=== PATIENT | female | born 1980 | race Caucasian/White ===

== ENCOUNTER 2017-10-21 15:05 | Emergency (ER) | payer SELFPAY ==
[~2017-10-21] VITALS: Ht 162.6 cm; Wt 85.0 kg
[2017-10-21 22:02] VITALS: BP 134/80
== END 2017-10-21 22:05 | disposition home or self-care (01) ==
LOC: ER 22:05
DX: S82.831A Other fracture of upper and lower end of right fibula, initial encounter for closed fracture (principal); W01.0XXA Fall on same level from slipping, tripping and stumbling without subsequent striking against object, initial encounter; Y93.89 Activity, other specified; Y92.018 Other place in single-family (private) house as the place of occurrence of the external cause
CPT/HCPCS: 29515; 73610; 81025; 99284

== ENCOUNTER 2018-12-10 17:36 | Observation (INO) | payer MEDICAID ==
[~2018-12-10] VITALS: Ht 162.6 cm; Wt 110.7 kg
[2018-12-10] MEDS ORDERED: GLYB1.253 MT (19:04)
[2018-12-10] MEDS ORDERED: PRO1 MT (19:04)
[2018-12-10] MEDS ORDERED: ASPI-1159 MT (19:04)
[2018-12-10 19:26] LABS: BASOPHILS % 0.4 % (0.0-2.0); EOSINOPHILS % 0.4 % (0.0-5.0); LYMPHOCYTES % 17.9 % (20.0-50.0); MEAN CORPUSCULAR HEMOGLOBIN 18.9 pg (28.0-32.0); MEAN CORPUSCULAR VOLUME 63.3 fL (81.0-99.0); MEAN PLATELET VOLUME 8.6 fl (7.4-10.4); MONOCYTES % 4.9 % (2.0-8.0); NEUTROPHILS % 76.4 % (40.0-76.0); PLATELET 209 x1000/uL (130-400); RED BLOOD CELL COUNT 4.26 mill/uL (4.2-5.4)
[2018-12-10 19:29] LABS: CHLORIDE 110 mEq/L (98-107)
[2018-12-10] MEDS ORDERED: LABETALOL HCL 100MG TABLET PO SCH (19:30)
[2018-12-10 19:31] LABS: D-DIMER 1.26 mg/L FEU (<0.50); INR 0.9; PARTIAL THROMBOPLASTIN TIME 26.2 sec (23.4-31.0); PROTHROMBIN TIME 9.3 sec (9.6-11.0)
[2018-12-10 19:45] LABS: PLATELET ESTIMATE NORMAL
[2018-12-10 20:07] LABS: CLARITY URINE CLEAR (CLEAR); COLOR URINE YELLOW (YELLOW); KETONES URINE NEGATIVE (NEGATIVE); LEUKOCYTE ESTERASE URINE NEGATIVE (NEGATIVE); NITRITE URINE NEGATIVE (NEGATIVE); OCCULT BLOOD URINE NEGATIVE (NEGATIVE); PH URINE 5.5 (4.5-8.0); PROTEIN URINE NEGATIVE (NEGATIVE); UROBILINOGEN URINE 0.2 E.U./dL (0.2-1.0)
[2018-12-10] MEDS ORDERED: INSULIN NPH (HUMULIN-N) 100 UNITS/ML 3ML VIAL SUBCUT SCH (22:00)
[2018-12-10] MEDS: ACETAMINOPHEN 325MG TABLET PO NR ×2 (22:50→22:53)
[2018-12-11] MEDS ORDERED: INSULIN REGULAR (HUMULIN R) 300UNITS/3ML SUBCUT SCH ×3 (07:00→17:00)
[2018-12-11] MEDS ORDERED: INSULIN NPH (HUMULIN-N) 100 UNITS/ML 3ML VIAL SUBCUT SCH (07:00)
== END 2018-12-11 02:21 | disposition home or self-care (01) ==
LOC: 8 EST LDRP 17:36
PROVIDERS: ADMIT Obstetrics & Gynecology; ATTEND Obstetrics & Gynecology
DX: O24.419 Gestational diabetes mellitus in pregnancy, unspecified control (principal); O16.3 Unspecified maternal hypertension, third trimester; O40.3XX0 Polyhydramnios, third trimester, not applicable or unspecified; Z3A.37 37 weeks gestation of pregnancy
CPT/HCPCS: 36415; 80053; 81003; 82575; 82962; 83036; 84156; 84550; 85025; 85379; 85384; 85610; 85730; 96372; 99281; G0378; J1815

== ENCOUNTER 2018-12-24 07:52 | Inpatient (IN) | payer MEDICAID ==
[~2018-12-24] VITALS: Ht 157.5 cm; Wt 100.2 kg
[~2018-12-24 07:52] MED LIST: ASPI-1159 MT; GLYB1.253 MT; PRO1 MT
[2018-12-24] MEDS ORDERED: MORPHINE SULFATE/PF 1MG/ML 10ML AMP ONE (08:10)
[2018-12-24] MEDS ORDERED: FENTANYL CITRATE/PF 50MCG/ML 2ML VIAL ONE (08:10)
[2018-12-24] MEDS ORDERED: ONDANSETRON HCL 4MG/2ML INJ ONE (08:11)
[2018-12-24] MEDS ORDERED: OXYTOCIN 10 UNITS/ML 1ML ONE ×2 (08:11→11:23)
[2018-12-24] MEDS ORDERED: GLYCOPYRROLATE 0.2 MG/ML 2ML VIAL ONE (08:11)
[2018-12-24] MEDS ORDERED: EPHEDRINE SULFATE 50MG/ML VIAL ONE (08:11)
[2018-12-24] MEDS ORDERED: BUPIVACAINE HCL/DEXTROSE/PF 0.75% 2ML AMP INJ ONE (08:11)
[2018-12-24] MEDS ORDERED: PHENYLEPHRINE HCL 10 MG/ML 1ML (IV VIAL) IV ONE (08:11)
[2018-12-24] MEDS: BLOOD SUGAR DIAGNOSTIC STRIP TEST SCH ×2 (08:15→13:02)
[2018-12-24 09:07] LABS: BASOPHILS % 0.6 % (0.0-2.0); EOSINOPHILS % 0.7 % (0.0-5.0); HEMATOCRIT. 26.4 % (36.0-48.0); HEMOGLOBIN. 7.9 g/dL (12.0-16.0); LYMPHOCYTES % 19.2 % (20.0-50.0); MEAN CORPUSCULAR HEMOGLOBIN 18.7 pg (28.0-32.0); MEAN CORPUSCULAR VOLUME 62.6 fL (81.0-99.0); MEAN PLATELET VOLUME 8.6 fl (7.4-10.4); MONOCYTES % 6.1 % (2.0-8.0); NEUTROPHILS % 73.4 % (40.0-76.0); PLATELET 234 x1000/uL (130-400); RED BLOOD CELL COUNT 4.22 mill/uL (4.2-5.4); RED CELL DISTRIBUTION WIDTH 22.8 % (11.6-14.6)
[2018-12-24 09:13] LABS: CHLORIDE 112 mEq/L (98-107)
[2018-12-24] MEDS ORDERED: MISOPROSTOL 200MCG TABLET PO ONE (09:15)
[2018-12-24] MEDS ORDERED: METHYLERGONOVINE MALEATE 0.2 MG/ML IM ONE (09:15)
[2018-12-24] MEDS ORDERED: CARBOPROST TROMETHAMINE 250 MCG/ML AMPUL IM ONE ×2 (09:15→10:45)
[2018-12-24 09:23] LABS: D-DIMER 1.31 mg/L FEU (<0.50); FIBRINOGEN 502 mg/dL (200-400); INR 0.9; PARTIAL THROMBOPLASTIN TIME 27.2 sec (23.4-31.0)
[2018-12-24] MEDS: LACTATED RINGERS 1,000 ML IV SCH (09:26)
[2018-12-24] MEDS ORDERED: CEFAZOLIN SODIUM 1000MG/VIAL ONE (09:34)
[2018-12-24 09:48] LABS: PROTHROMBIN TIME < 9.0 sec (9.6-11.0)
[2018-12-24 09:59] LABS: PLATELET ESTIMATE NORMAL
[2018-12-24] MEDS ORDERED: METOCLOPRAMIDE HCL 10MG/2ML VIAL ONE (11:02)
[2018-12-24] MEDS ORDERED: DIPHENHYDRAMINE 50MG/ML VIAL ONE (11:03)
[2018-12-24 11:05] LABS: HEPATITIS B SURFACE ANTIGEN NEGATIVE
[2018-12-24] MEDS ORDERED: NALOXONE HCL 0.4 MG/ML 1ML VIAL IV PRN (11:15)
[2018-12-24] MEDS ORDERED: DIPHENHYDRAMINE 50MG/ML VIAL IV PRN (11:15)
[2018-12-24] MEDS ORDERED: BUTORPHANOL TARTRATE 2 MG/ML VIAL IV PRN (11:15)
[2018-12-24] MEDS ORDERED: ONDANSETRON HCL 4MG/2ML INJ IV PRN (11:15)
[2018-12-24] MEDS ORDERED: DEXTROSE 50% WATER 50ML SYRINGE IV PRN (12:00)
[2018-12-24] MEDS: BUTORPHANOL TARTRATE 2 MG/ML VIAL IM PRN (13:18)
[2018-12-24 13:21] LABS: CLARITY URINE CLEAR (CLEAR); COLOR URINE YELLOW (YELLOW); KETONES URINE NEGATIVE (NEGATIVE); LEUKOCYTE ESTERASE URINE NEGATIVE (NEGATIVE); NITRITE URINE NEGATIVE (NEGATIVE); OCCULT BLOOD URINE NEGATIVE (NEGATIVE); PROTEIN URINE 1+ (NEGATIVE); SPECIFIC GRAVITY URINE 1.012 (1.005-1.030)
[2018-12-24 13:40] LABS: *AMPHETAMINES SCREEN URINE NEGATIVE (NEGATIVE); *BARBITURATES SCREEN URINE NEGATIVE (NEGATIVE); *BENZODIAZEPINES SCREEN URINE NEGATIVE (NEGATIVE); *COCAINE SCREEN URINE NEGATIVE (NEGATIVE); METHADONE URINE SCREEN NEGATIVE (NEGATIVE); OPIATES URINE SCREEN NEGATIVE (NEGATIVE)
[2018-12-24 13:41] LABS: CANNABINOID URINE SCREEN NEGATIVE (NEGATIVE); PHENCYCLIDINE URINE SCREEN NEGATIVE (NEGATIVE)
[2018-12-24 13:55] VITALS: BP 145/85
[2018-12-24] MEDS: LACTATED RINGERS IV SCH (14:22)
[2018-12-24] MEDS: OXYTOCIN IV SCH (14:22)
[2018-12-24 14:25] VITALS: BP 145/85
[2018-12-24 14:52] VITALS: BP 142/85
[2018-12-24 17:30] VITALS: BP 127/71
[2018-12-24 20:00] VITALS: BP 129/88
[2018-12-25] VITALS (14 sets, daily range): BP systolic 122–144; BP diastolic 60–88
[2018-12-25] MEDS: LACTATED RINGERS 1,000 ML IV SCH ×2 (00:55→09:15)
[2018-12-25] MEDS: BUTORPHANOL TARTRATE 2 MG/ML VIAL IM PRN (03:35)
[2018-12-25] MEDS ORDERED: IBUPROFEN 800MG TABLET PO PRN (08:45)
[2018-12-25 08:59] LABS: BASOPHILS % 0.3 % (0.0-2.0); LYMPHOCYTES % 7.7 % (20.0-50.0); MEAN CORPUSCULAR HEMOGLOBIN 18.6 pg (28.0-32.0); MEAN CORPUSCULAR VOLUME 63.1 fL (81.0-99.0); MEAN PLATELET VOLUME 8.1 fl (7.4-10.4); MONOCYTES % 4.6 % (2.0-8.0); NEUTROPHILS % 87.4 % (40.0-76.0); PLATELET 232 x1000/uL (130-400); RED BLOOD CELL COUNT 2.55 mill/uL (4.2-5.4); RED CELL DISTRIBUTION WIDTH 22.6 % (11.6-14.6)
[2018-12-25 09:05] LABS: HEMOGLOBIN. 4.7 g/dL (12.0-16.0)
[2018-12-25 09:06] LABS: HEMATOCRIT. 16.1 % (36.0-48.0)
[2018-12-25] MEDS: IBUPROFEN 800MG TABLET PO PRN ×2 (10:17→20:40)
[2018-12-25] MEDS: LACTATED RINGERS IV SCH (10:18)
[2018-12-25] MEDS: OXYTOCIN IV SCH (10:18)
[2018-12-25 10:22] LABS: BASOPHILS % 0.3 % (0.0-2.0); LYMPHOCYTES % 7.9 % (20.0-50.0); MEAN CORPUSCULAR HEMOGLOBIN 18.5 pg (28.0-32.0); MEAN CORPUSCULAR VOLUME 62.8 fL (81.0-99.0); MEAN PLATELET VOLUME 8.4 fl (7.4-10.4); NEUTROPHILS % 86.8 % (40.0-76.0); PLATELET 217 x1000/uL (130-400); RED BLOOD CELL COUNT 2.52 mill/uL (4.2-5.4)
[2018-12-25 10:26] LABS: HEMATOCRIT. 15.8 % (36.0-48.0); HEMOGLOBIN. 4.7 g/dL (12.0-16.0)
[2018-12-25] MEDS ORDERED: ACETAMINOPHEN 325MG TABLET PO NR (13:30)
[2018-12-25] MEDS ORDERED: DIPHENHYDRAMINE 25MG CAPSULE PO NR (13:30)
[2018-12-25 20:41] LABS: BASOPHILS % 0.2 % (0.0-2.0); EOSINOPHILS % 0.3 % (0.0-5.0); LYMPHOCYTES % 10.5 % (20.0-50.0); MEAN CORPUSCULAR HEMOGLOBIN 21.6 pg (28.0-32.0); MEAN CORPUSCULAR VOLUME 70.2 fL (81.0-99.0); MEAN PLATELET VOLUME 8.3 fl (7.4-10.4); MONOCYTES % 5.2 % (2.0-8.0); NEUTROPHILS % 83.8 % (40.0-76.0); PLATELET 187 x1000/uL (130-400); RED BLOOD CELL COUNT 2.95 mill/uL (4.2-5.4); RED CELL DISTRIBUTION WIDTH 28.3 % (11.6-14.6)
[2018-12-25 20:43] LABS: HEMOGLOBIN. 6.4 g/dL (12.0-16.0)
[2018-12-25] MEDS: BLOOD SUGAR DIAGNOSTIC STRIP TEST SCH (20:43)
[2018-12-25 20:44] LABS: HEMATOCRIT. 20.7 % (36.0-48.0)
[2018-12-25] MEDS: INSULIN LISPRO (LOW DOSE) 100 UNITS/ML SUBCUT SCH (21:22)
[2018-12-26] VITALS (24 sets, daily range): BP systolic 105–161; BP diastolic 41–77
[2018-12-26] MEDS: BLOOD SUGAR DIAGNOSTIC STRIP TEST SCH ×7 (00:40→21:57)
[2018-12-26] MEDS ORDERED: LABETALOL HCL 200MG TABLET PO SCH ×2 (06:15→11:00)
[2018-12-26 07:51] LABS: HEMATOCRIT. 24.4 % (36.0-48.0); HEMOGLOBIN. 7.6 g/dL (12.0-16.0); MEAN CORPUSCULAR HEMOGLOBIN 22.4 pg (28.0-32.0); MEAN CORPUSCULAR VOLUME 71.5 fL (81.0-99.0); MEAN PLATELET VOLUME 8.3 fl (7.4-10.4); PLATELET 158 x1000/uL (130-400); RED BLOOD CELL COUNT 3.41 mill/uL (4.2-5.4)
[2018-12-26] MEDS: INSULIN LISPRO (LOW DOSE) 100 UNITS/ML SUBCUT SCH ×3 (08:00→13:03)
[2018-12-26 08:10] LABS: D-DIMER 3.54 mg/L FEU (<0.50); INR 0.9; PARTIAL THROMBOPLASTIN TIME 27.5 sec (23.4-31.0); PROTHROMBIN TIME 9.1 sec (9.6-11.0)
[2018-12-26 08:20] LABS: CHLORIDE 114 mEq/L (98-107)
[2018-12-26] MEDS: DOCUSATE SODIUM 100MG CAPSULE PO SCH (08:46)
[2018-12-26] MEDS: IBUPROFEN 800MG TABLET PO PRN ×2 (08:46→16:53)
[2018-12-26] MEDS: LACTATED RINGERS 1,000 ML IV SCH (10:28)
[2018-12-26 11:03] LABS: PLATELET ESTIMATE NORMAL
[2018-12-26] MEDS: NIFEDIPINE 10MG CAPSULE PO SCH ×2 (11:58→22:37)
[2018-12-26 15:59] LABS: CLARITY URINE CLEAR (CLEAR); COLOR URINE YELLOW (YELLOW); KETONES URINE NEGATIVE (NEGATIVE); LEUKOCYTE ESTERASE URINE TRACE (NEGATIVE); NITRITE URINE NEGATIVE (NEGATIVE); OCCULT BLOOD URINE 2+ (NEGATIVE); PH URINE 6.5 (4.5-8.0); PROTEIN URINE NEGATIVE (NEGATIVE); SPECIFIC GRAVITY URINE 1.012 (1.005-1.030)
[2018-12-26 19:01] LABS: HEMATOCRIT 28.3 % (36.0-48.0); HEMOGLOBIN 9.3 g/dL (12.0-16.0)
[2018-12-27 02:00] VITALS: BP 139/65
[2018-12-27 05:39] VITALS: BP 142/69
[2018-12-27 08:00] VITALS: BP 147/73
[2018-12-27] MEDS: DOCUSATE SODIUM 100MG CAPSULE PO SCH (09:03)
[2018-12-27] MEDS: NIFEDIPINE 10MG CAPSULE PO SCH (09:03)
[2018-12-27] MEDS: IBUPROFEN 800MG TABLET PO PRN (09:04)
[2018-12-27 12:00] VITALS: BP 127/74
== END 2018-12-27 13:25 | disposition home or self-care (01) | DRG 540 ==
LOC: OBSVTOIN 07:52 → 8 EST LDRP 07:52 → 8EST 14:05
PROVIDERS: ADMIT Obstetrics & Gynecology; ATTEND Obstetrics & Gynecology
PROC: 10D00Z1 Extraction of Products of Conception, Low, Open Approach (ICD-10-PCS; principal; 2018-12-24)
PROC: 0UB70ZZ Excision of Bilateral Fallopian Tubes, Open Approach (ICD-10-PCS; 2018-12-24)
PROC: 30233N1 Transfusion of Nonautologous Red Blood Cells into Peripheral Vein, Percutaneous Approach (ICD-10-PCS; 2018-12-25)
DX: O13.4 Gestational [pregnancy-induced] hypertension without significant proteinuria, complicating childbirth (principal); E66.01 Morbid (severe) obesity due to excess calories; O40.3XX0 Polyhydramnios, third trimester, not applicable or unspecified; O34.211 Maternal care for low transverse scar from previous cesarean delivery; Z37.0 Single live birth; O36.63X0 Maternal care for excessive fetal growth, third trimester, not applicable or unspecified; O24.429 Gestational diabetes mellitus in childbirth, unspecified control; O99.214 Obesity complicating childbirth; D64.9 Anemia, unspecified; Z3A.39 39 weeks gestation of pregnancy; Z30.2 Encounter for sterilization; Z82.49 Family history of ischemic heart disease and other diseases of the circulatory system; Z83.3 Family history of diabetes mellitus; O99.02 Anemia complicating childbirth
CPT/HCPCS: 36415; 80305; 82947; 82962; 84550; 85014; 85018; 85379; 85384; 86592; 86703; 86762; 86850; 86900; 86920; 87340; 88302; 88307; G0378; J0595; J0690; J1200; J1815; J2274; J2370; J2405; J2765; J3010; J3490; J7040; J7120; P9016; P9021; Q0163; A4315

== ENCOUNTER 2024-03-23 10:40 | Emergency (ER) | payer MEDICAID, OTHER ==
[~2024-03-23] VITALS: Ht 167.6 cm; Wt 81.0 kg
[~2024-03-23 10:40] MED LIST changes: -ASPI-1159 MT
[2024-03-23 10:55] VITALS: BP_DIAS 88; O2SAT 100
[2024-03-23] MEDS: VANCOMYCIN 1G PREMIX 200 ML IV NR (11:45)
[2024-03-23] MEDS: CEFTRIAXONE 1GM/50ML 50 ML IV NR (11:45)
[2024-03-23 12:02] LABS: BASOPHILS % 0.2 % (0.0-2.0); EOSINOPHILS % 1.2 % (0.0-5.0); HEMATOCRIT. 35.3 % (36.0-48.0); HEMOGLOBIN. 10.7 g/dL (12.0-16.0); LYMPHOCYTES % 23.2 % (20.0-50.0); MEAN CORPUSCULAR HEMOGLOBIN 19.5 pg (28.0-32.0); MEAN CORPUSCULAR HGB CONC 30.3 g/dL (31.0-37.0); MEAN CORPUSCULAR VOLUME 64.4 fL (81.0-99.0); MEAN PLATELET VOLUME 8.5 fl (7.4-10.4); MONOCYTES % 8.6 % (2.0-8.0); NEUTROPHILS % 66.8 % (40.0-76.0); PLATELET 250 x1000/uL (130-400); RED BLOOD CELL COUNT 5.48 mill/uL (4.2-5.4); RED CELL DISTRIBUTION WIDTH 23.1 % (11.6-14.6); WHITE BLOOD COUNT 6.4 x1000/uL (4.5-11.0)
[2024-03-23 12:04] LABS: CHLORIDE 104 mEq/L (98-107); POTASSIUM 3.5 mEq/L (3.5-5.1); SODIUM 136 mEq/L (136-145)
[2024-03-23 12:05] LABS: CARBON DIOXIDE 25 mEq/L (21-32); INR 0.9; PROTHROMBIN TIME 10.2 sec (9.6-11.0)
[2024-03-23 12:10] LABS: CREATININE 0.5 mg/dL (0.6-1.0); GLUCOSE 193 mg/dL (70-105); UREA NITROGEN BLOOD 7 mg/dL (9-23)
[2024-03-23 12:12] LABS: ALANINE AMINOTRANSFERASE 37 IU/L (10-49); ALBUMIN 4.4 g/dL (3.2-4.8); ASPARTATE AMINOTRANSFERASE 38 IU/L (<34); BILIRUBIN TOTAL 0.3 mg/dL (0.1-1.0); PROTEIN TOTAL 7.5 g/dL (6.0-8.3)
[2024-03-23 12:13] LABS: ADD RBC MORPHOLOGY YES; DIFFERENTIAL COMMENT 1
[2024-03-23 12:14] LABS: HCG SCREEN NEGATIVE
[2024-03-23 12:15] LABS: BILIRUBIN DIRECT < 0.1 mg/dL (<=3.0); TROPONIN I HIGH SENSITIVITY < 4 ng/L (3.0-34)
[2024-03-23 13:10] LABS: ANISOCYTOSIS 2+; PLATELET ESTIMATE NORMAL
[2024-03-23 13:11] LABS: MICROCYTOSIS 2+
[2024-03-23] MEDS: SODIUM CHLORIDE 0.9% 1000ML BAG (SEPSIS BOLUS) IV NR (13:55)
[2024-03-23] MEDS: FAMOTIDINE 20MG/2ML VIAL IV NR (16:17)
[2024-03-23 17:33] LABS: CLARITY URINE CLEAR (CLEAR); COLOR URINE YELLOW (YELLOW); GLUCOSE URINE NEGATIVE (NEGATIVE); KETONES URINE NEGATIVE (NEGATIVE); LEUKOCYTE ESTERASE URINE NEGATIVE (NEGATIVE); NITRITE URINE NEGATIVE (NEGATIVE); OCCULT BLOOD URINE NEGATIVE (NEGATIVE); PROTEIN URINE NEGATIVE (NEGATIVE); SPECIFIC GRAVITY URINE 1.017 (1.005-1.030); UROBILINOGEN URINE 0.2 E.U./dL (0.2-1.0)
[2024-03-23 18:39] VITALS: BP_SYST 132; PULSE 88; RESP 20; TEMP 97.7
== END 2024-03-23 18:55 | disposition home or self-care (01) ==
LOC: ER 11:04
DX: A08.4 Viral intestinal infection, unspecified (principal); R11.2 Nausea with vomiting, unspecified
CPT/HCPCS: 80076; 80048; 81003; 84703; 83605; 83690; 83930; 85025; 85610; 87040; 87086; 84484; 36415; 84145; 71045; 93005; 96368; 96365; 96366; 96375; 99291; J0696; J3490; J3370; Z7610 ×2

== ENCOUNTER 2024-08-13 12:28 | Emergency (ER) | payer OTHER ==
[~2024-08-13] VITALS: Ht 165.1 cm; Wt 81.6 kg
[~2024-08-13 12:28] MED LIST changes: +NIFE10CA59 MT; -PRO1 MT
[2024-08-13 12:47] VITALS: BP 148/85; RESP 16; O2SAT 100
[2024-08-13 12:50] VITALS: PULSE 86; O2SAT 99
[2024-08-13] MEDS ORDERED: ACET-2708 MT (13:29)
[2024-08-13 14:20] VITALS: TEMP 97.9
[2024-08-13] MEDS: ACETAMINOPHEN 325MG TABLET PO ONE (14:20)
== END 2024-08-13 13:12 | disposition home or self-care (01) ==
LOC: ER 12:28
DX: F41.9 Anxiety disorder, unspecified (principal); E11.9 Type 2 diabetes mellitus without complications; Z98.890 Other specified postprocedural states
CPT/HCPCS: 99282

== ENCOUNTER 2025-03-27 12:58 | Emergency (ER) | payer OTHER ==
[~2025-03-27] VITALS: Ht 165.1 cm; Wt 86.0 kg
[~2025-03-27 12:58] MED LIST changes: +ACET-2708 MT
[2025-03-27 13:11] VITALS: O2SAT 97
[2025-03-27] MEDS: KETOROLAC 30MG/ML VIAL IM ONE (15:06)
[2025-03-27 15:54] LABS: CLARITY URINE CLEAR (CLEAR); GLUCOSE URINE 3+ (NEGATIVE); KETONES URINE NEGATIVE (NEGATIVE); LEUKOCYTE ESTERASE URINE NEGATIVE (NEGATIVE); NITRITE URINE NEGATIVE (NEGATIVE); OCCULT BLOOD URINE 2+ (NEGATIVE); PH URINE 5.5 (4.5-8.0); PROTEIN URINE TRACE (NEGATIVE); SPECIFIC GRAVITY URINE 1.043 (1.005-1.030); UROBILINOGEN URINE 0.2 E.U./dL (0.2-1.0)
[2025-03-27 16:28] LABS: COLOR URINE STRAW (YELLOW)
[2025-03-27 16:31] LABS: BACTERIA URINE NONE SEEN; SQUAMOUS EPITHELIAL CELL URINE RARE /lpf (RARE/1+); WBC URINE NONE SEEN /hpf (0-2)
[2025-03-27] MEDS ORDERED: CYCL10TA21 MT (16:59)
[2025-03-27] MEDS ORDERED: IBUP-2030 MT (16:59)
[2025-03-27] MEDS ORDERED: TAMS-54 MT (17:00)
[2025-03-27 17:10] VITALS: BP 128/76; PULSE 75; RESP 18; TEMP 36.8; O2SAT 99
== END 2025-03-27 17:21 | disposition home or self-care (01) ==
LOC: ER 13:13
DX: M54.50 Low back pain, unspecified (principal); E11.9 Type 2 diabetes mellitus without complications; Z79.84 Long term (current) use of oral hypoglycemic drugs; Z98.890 Other specified postprocedural states; Z79.899 Other long term (current) drug therapy
CPT/HCPCS: 81003; 81025; 82962; 96372; 99283; J1885; Z7610

== ENCOUNTER 2025-06-07 16:36 | Emergency (ER) | payer OTHER ==
[~2025-06-07] VITALS: Ht 167.6 cm; Wt 86.0 kg
[~2025-06-07 16:36] MED LIST changes: +CYCL10TA21 MT; +IBUP-2030 MT; +TAMS-54 MT
[2025-06-07 16:47] VITALS: O2SAT 99
[2025-06-07] MEDS: ACETAMINOPHEN 500MG TABLET PO ONE (20:30)
[2025-06-07] MEDS: IBUPROFEN 400MG TABLET PO ONE (20:30)
[2025-06-07] MEDS ORDERED: TOPUD MT (22:39)
[2025-06-07] MEDS ORDERED: IBUP-2028 MT (22:39)
[2025-06-07 22:54] VITALS: BP 117/73; PULSE 88; RESP 15; TEMP 36.9; O2SAT 99
== END 2025-06-07 23:00 | disposition home or self-care (01) ==
LOC: ER 16:36
DX: R51.9 Headache, unspecified (principal); E11.9 Type 2 diabetes mellitus without complications; Z98.890 Other specified postprocedural states; Z79.899 Other long term (current) drug therapy; Z79.84 Long term (current) use of oral hypoglycemic drugs
CPT/HCPCS: 99284